=== PATIENT | female | born 1950 | race Caucasian/White ===

== ENCOUNTER 2018-09-28 10:58 | Emergency (ER) | payer OTHER ==
[~2018-09-28] VITALS: Wt 72.7 kg
[2018-09-28] MEDS ORDERED: HYDR25SU23 PR (12:56)
--- NOTE | 2018-09-28 12:58 | ERD ---
ER Documentation Chief Complaint Chief Complaint hemorroids bleeding, saw pmd given cream, unresolved HPI Patient is a 67-year-old female with hypertension who presents with rectal bleed. The patient said that after colonoscopy the patient was told she had hemorrhoids. The colonoscopy was July 02, 2018. The patient was given cream by her doctor. This started about 1 month ago. Last night the toilet had bright red blood in the toilet bowl. She has pain with bowel movements. She has not on blood thinning medications. She does have a GI doctor. ROS All systems reviewed and are negative except as per history of present illness. Medications Home Meds Active Scripts Hydrocortisone Acetate (Anusol-Hc) 25 Mg Supp.rect, 1 SUPP RI QHS PRN for HEMORROID PAIN/ITCHING, #12 SUPP.RECT Prov:SELENA HODGE MD 09/28/18 Allergies Allergies: Coded Allergies: Penicillins (Verified Allergy, Unknown, 09/28/18) PMhx/Soc Medical and Surgical Hx: pt denies Surgical Hx Hx Cardiac Disorders: Yes (cholesterol, bradycardia) Hx Miscellaneous Medical Probl: Yes (hemorrhoids) Hx Alcohol Use: No Hx Substance Use: No Hx Tobacco Use: No Smoking Status: Never smoker FmHx Family History: diabetes Physical Exam Vitals Vital Signs Date Temp Pulse Resp B/P (MAP) Pulse Ox O2 O2 Flow FiO2 Time Delivery Rate 09/28/18 97.8 68 20 142/76 99 13:23 (98) 09/28/18 98.0 65 20 200/89 99 11:06 (126) Physical Exam Const: No acute distress Head: Atraumatic Eyes: Normal Conjunctiva ENT: Normal External Ears, Nose and Mouth. Neck: Full range of motion. No meningismus. Resp: Clear to auscultation bilaterally Cardio: Regular rate and rhythm, no murmurs Abd: Soft, non tender, non distended. Normal bowel sounds Skin: No petechiae or rashes Back: No midline or flank tenderness Ext: No cyanosis, or edema Neur: Awake and alert Psych: Normal Mood and Affect Result Diagram: 09/28/18 1135 09/28/18 1135 Results 24 hrs Laboratory Tests Test 09/28/18 11:35 White Blood Count 4.9 10^3/ul Red Blood Count 4.44 10^6/ul Hemoglobin 12.7 g/dl Hematocrit 38.6 % Mean Corpuscular Volume 86.9 fl Mean Corpuscular Hemoglobin 28.6 pg Mean Corpuscular Hemoglobin Concent 32.9 g/dl Red Cell Distribution Width 12.8 % Platelet Count 280 10^3/UL Mean Platelet Volume 8.9 fl Immature Granulocytes % 0.400 % Neutrophils % 53.9 % Lymphocytes % 34.4 % Monocytes % 7.8 % Eosinophils % 3.1 % Basophils % 0.4 % Nucleated Red Blood Cells % 0.0 /100WBC Immature Granulocytes # 0.020 10^3/ul Neutrophils # 2.6 10^3/ul Lymphocytes # 1.7 10^3/ul Monocytes # 0.4 10^3/ul Eosinophils # 0.2 10^3/ul Basophils # 0.0 10^3/ul Nucleated Red Blood Cells # 0.0 10^3/ul Prothrombin Time 11.5 Sec Prothrombin Time Ratio 0.9 INR International Normalized Ratio 0.83 Activated Partial Thromboplast Time 26.7 Sec Sodium Level 141 mmol/L Potassium Level 4.1 mmol/L Chloride Level 105 mmol/L Carbon Dioxide Level 28 mmol/L Anion Gap 8 Blood Urea Nitrogen 17 mg/dl Creatinine 0.51 mg/dl Est Glomerular Filtrat Rate mL/min > 60 mL/min Glucose Level 104 mg/dl Calcium Level 9.0 mg/dl Total Bilirubin 0.1 mg/dl Direct Bilirubin 0.00 mg/dl Indirect Bilirubin 0.1 mg/dl Aspartate Amino Transf (AST/SGOT) 23 IU/L Alanine Aminotransferase (ALT/SGPT) 31 IU/L Alkaline Phosphatase 99 IU/L Troponin I < 0.012 ng/ml Total Protein 6.6 g/dl Albumin 3.9 g/dl Globulin 2.70 g/dl Albumin/Globulin Ratio 1.44 Procedures/MDM EKG read by me: Rate/Rhythm: Sinus bradycardia rate of 59 Intervals: Normal Impression: Sinus bradycardia without ischemia Patient is a 67-year-old female who presents with rectal bleeding. Blood tests are normal including normal hemoglobin. I believe this is most likely related to hemorrhoidal bleeding and the patient will be given a prescription for Anusol suppository. I do not believe the patient requires further workup or admission to the hospital at this time. I believe outpatient management is appropriate. Departure Diagnosis: Primary Impression: Rectal hemorrhage Condition: Fair Patient Instructions: Rectal Bleed, Stable Referrals: Your doctor Additional Instructions: Llame al doctor MAANA y sebastian princess PATRICIA PARA DENTRO DE 1-2 ADAMS.Dgale a la secretaria que nosotros le instruimos hacer esta patricia.Avise o llame si munguia condicin se empeora antes de la patricia. Regresa aqui si peor o no mejor. SELENA HODGE MD Sep 28, 2018 12:58
[2018-09-28 13:23] VITALS: BP 142/76; PULSE 68; RESP 20
== END 2018-09-28 13:24 | disposition home or self-care (01) ==
LOC: E/R 10:58
DX: K62.5 Hemorrhage of anus and rectum (principal); I10 Essential (primary) hypertension; R40.2142 Coma scale, eyes open, spontaneous, at arrival to emergency department; R40.2252 Coma scale, best verbal response, oriented, at arrival to emergency department; R40.2362 Coma scale, best motor response, obeys commands, at arrival to emergency department
CPT/HCPCS: 36415; 80053; 84484; 85025; 85610; 85730; 86850; 86900; 86901; 93005

== ENCOUNTER 2019-02-09 11:13 | Day surgery (SDC) | payer OTHER ==
[~2019-02-09] VITALS: Ht 157.5 cm; Wt 74.1 kg
[~2019-02-09 11:13] MED LIST: HYDR25SU23 PR
[2019-02-09 12:13] VITALS: Ht 157.5 cm; Wt 74.1 kg
[2019-02-09] MEDS ORDERED: SIMVASTATIN (12:22)
[2019-02-09] MEDS ORDERED: PROTONIX (12:23)
[2019-02-09] MEDS ORDERED: PREPARATION H (12:23)
[2019-02-09] MEDS ORDERED: ASPIRIN (12:23)
[2019-02-09] MEDS ORDERED: SENNA (12:23)
[2019-02-09 12:37] VITALS: BP 117/55; PULSE 62; RESP 18
--- NOTE | 2019-02-09 13:05 | PREAC ---
Date/Time of Note Date/Time of Note DATE: 02/09/19 TIME: 13:04 Anesthesia Eval and Record Evaluation Time Pre-Procedure Interview DATE: 02/09/19 TIME: 13:04 Age 68 Sex female NPO: 8 hrs Preoperative diagnosis RECTAL BLEED Planned procedure COLONOSCOPY Past Medical History Past Medical History: Includes Cardio: Dyslipidemia GI: GERD Surgery & Anesthesia Issues No known issue Meds Anticoagulation: No Beta Camilla within 24 hr: No Reason Beta Camilla not given: Pt. not on B-Camilla Reported Medications [Protonix] No Conflict Check 02/09/19 [Senna] No Conflict Check 02/09/19 [Aspirin] No Conflict Check 02/09/19 [Preparation H] No Conflict Check 02/09/19 [Simvastatin] No Conflict Check 02/09/19 Discontinued Scripts Hydrocortisone Acetate (Anusol-Hc) 25 Mg Supp.rect, 1 SUPP MO QHS PRN for HEMORROID PAIN/ITCHING, #12 SUPP.RECT Prov:SELENA HODGE MD 09/28/18 Meds reviewed: Yes Allergies Coded Allergies: Penicillins (Verified Allergy, Unknown, 02/09/19) Allergies Reviewed: Yes Labs/Studies Labs Reviewed: Reviewed by anesthesiologist test: N/A Pre-procedure Exam Last vitals Vital Signs Date Temp Pulse Resp B/P (MAP) Pulse Ox O2 O2 Flow FiO2 Time Delivery Rate 02/09/19 97.1 62 18 117/55 97 Room Air 12:37 (75) Airway: Adequate mouth opening, Adequate thyromental dist Mallampati: Mallampati II Teeth: Normal Lung: Normal Heart: Normal ASA Physical Status ASA physical status: 2 Emergency: None Planned Anesthetic General/MAC: MAC Planned Pain Management Parenteral pain med Pre-operative Attestations Prior to commencing anesthesia and surgery, the patient was re-evaluated, there was verification of: *The patient's identity *The results of appropriate recent lab work and preoperative vital signs *The above evaluation not changing prior to induction *Anesthetic plan, risk benefits, alternative and complications discussed with patient/family; questions answered; patient/family understands, accepts and wishes to proceed. ARTURO SNEED February 09, 2019 13:05
[2019-02-09] MEDS ORDERED: PROPOFOL 40 ML ONE (13:23)
[2019-02-09] MEDS ORDERED: LIDOCAINE 2% (SDV) 5 ML INJ ONE (13:23)
[2019-02-09] MEDS ORDERED: ONDANSETRON 4 MG INJ IV PRN (13:30)
[2019-02-09] MEDS ORDERED: FENTAnyl 50 MCG/ML VIAL IV PRN (13:30)
[2019-02-09] MEDS ORDERED: EPHEDrine 25 MG/5 ML SYG IV PRN (13:30)
[2019-02-09] MEDS ORDERED: LABETALOL HCL 20MG INJ IV PRN (13:30)
[2019-02-09] MEDS ORDERED: hydrALAzine 20 MG INJ IV PRN (13:30)
[2019-02-09 14:16] VITALS: BP 128/60; PULSE 60; RESP 16
--- NOTE | 2019-02-09 17:05 | PAC ---
Date/Time of Note Date/Time of Note DATE: 02/09/19 TIME: 17:04 Post-Anesthesia Notes Post-Anesthesia Note Last documented vital signs Vital Signs Date Temp Pulse Resp B/P (MAP) Pulse Ox O2 O2 Flow FiO2 Time Delivery Rate 02/09/19 97.4 60 16 128/60 95 Room Air 14:16 (82) 02/09/19 97.1 12:37 Activity: WNL Respiratory function: WNL Cardiovascular function: WNL Mental status: Baseline Pain reasonably controlled: Yes Hydration appropriate: Yes Nausea/Vomiting absent: Yes ARTURO SNEED February 09, 2019 17:05
== END 2019-02-09 16:00 | disposition home or self-care (01) ==
LOC: GIL 11:13
PROVIDERS: ATTEND Internal Medicine Gastroenterology
DX: K92.1 Melena (principal); K57.30 Diverticulosis of large intestine without perforation or abscess without bleeding; K64.8 Other hemorrhoids; Z79.82 Long term (current) use of aspirin
CPT/HCPCS: 88305